=== PATIENT | male | born 2000 | race Caucasian/White ===

== ENCOUNTER 2022-12-04 16:56 | Emergency (ER) | payer SELFPAY ==
[2022-12-04 17:07] VITALS: BP 123/79; PULSE 103; RESP 20; TEMP 98; BMI 25.8
[2022-12-04] MEDS ORDERED: IBUPROFEN 600 MG TABLET (FP) PO ONE ×2 (17:26→17:28)
== END 2022-12-04 18:59 | disposition home or self-care (01) ==
LOC: JERFT 16:56
PROC: 2W3QX1Z Immobilization of Right Lower Leg using Splint (ICD-10-PCS; principal; 2022-12-04)
DX: S92.001A Unspecified fracture of right calcaneus, initial encounter for closed fracture (principal); W01.0XXA Fall on same level from slipping, tripping and stumbling without subsequent striking against object, initial encounter
CPT/HCPCS: 73610-TC-RT-FY; 73630-TC-RT-FY; 99283-25